=== PATIENT | male | born 1990 | race Caucasian/White ===

== ENCOUNTER 2018-06-06 20:04 | Emergency (ER) | payer BC, OTHER ==
[2018-06-06] MEDS ORDERED: Benzocaine 20% Topical Spray UD MUCMEM ONE (20:22)
[2018-06-06] MEDS ORDERED: Lidocaine 2% Viscous Solution 100 ML Bottle PO ONE (20:22)
[2018-06-06] MEDS ORDERED: Lidocaine 2% Viscous Solution 15 ML Cup ONE (20:53)
[2018-06-06] MEDS ORDERED: Ketorolac 60 MG/2 ML SDV IM ONE (21:42)
--- NOTE | 2018-06-06 21:42 | EDM.PDOC ---
ED HPI GENERAL MEDICAL PROBLEM - General Chief Complaint: ENT Problem Stated Complaint: EAR ACHE CAUSED BY TOOTH ACHE Time Seen by Provider: 06/06/18 21:27 Source of Information: Reports: Patient History Limitations: Reports: No Limitations - History of Present Illness INITIAL COMMENTS - FREE TEXT/NARRATIVE: HISTORY AND PHYSICAL: History of present illness: 27-year-old male presenting department with chief complaint of right tooth pain Patient states that he has had problems with his right tooth for the past few days. The last 2 days he's been having more pain. He has not been able to get to the dentist. He denies any fever, chills, nausea, vomiting, or other signs of systemic infection. On exam tooth #29 is chipped and there is mild swelling to the gum adjacent. Review of systems: As per history of present illness and below otherwise all systems reviewed and negative. Past medical history: As per history of present illness and as reviewed below otherwise noncontributory. Surgical history: As per history of present illness and as reviewed below otherwise noncontributory. Social history: No reported history of drug or alcohol abuse. Family history: As per history of present illness and as reviewed below otherwise noncontributory. Physical exam: HEENT: Atraumatic, normocephalic, pupils reactive, negative for conjunctival pallor or scleral icterus, mucous membranes moist, throat clear, neck supple, nontender, trachea midline. Lungs: Clear to auscultation, breath sounds equal bilaterally, chest nontender. Heart: S1S2, regular, negative for clicks, rubs, or JVD. Abdomen: Soft, nondistended, nontender. Negative for masses or hepatosplenomegaly. Negative for costovertebral tenderness. Pelvis: Stable nontender. Genitourinary: Deferred. Rectal: Deferred. Extremities: Atraumatic, negative for cords or calf pain. Neurovascular unremarkable. Neuro: Awake, alert, oriented. Cranial nerves II through XII unremarkable. Cerebellum unremarkable. Motor and sensory unremarkable throughout. Exam nonfocal. Diagnostics: [] Therapeutics: Augmentin Dental balls Tordol Impression: Dental abscess Plan: [] Definitive disposition and diagnosis as appropriate pending reevaluation and review of above. Jaw, R Pain Score (Numeric/FACES): 4 - Related Data Allergies Allergy/AdvReac Type Severity Reaction Status Date / Time No Known Allergies Allergy Verified 06/06/18 20:39 Home Meds: Home Meds . [No Known Home Meds] 06/06/18 [History] Past Medical History - Past Health History Medical/Surgical History: Denies Medical/Surgical History - Infectious Disease History Infectious Disease History: Reports: Chicken Pox - Past Surgical History Other Musculoskeletal Surgeries/Procedures:: finger surgery Social & Family History - Tobacco Use Smoking Status *Q: Former Smoker Used Tobacco, but Quit: Yes Month/Year Tobacco Last Used: 12/14 - Caffeine Use Caffeine Use: Reports: Soda - Recreational Drug Use Recreational Drug Use: No ED ROS GENERAL - Review of Systems Review Of Systems: ROS reveals no pertinent complaints other than HPI. ED EXAM, GENERAL - Physical Exam Exam: See Below Course - Vital Signs Last Recorded V/S: Last Vital Signs Temp 99.3 F 06/06/18 20:37 Pulse 81 06/06/18 20:37 Resp 12 06/06/18 20:37 BP 114/72 06/06/18 20:44 Pulse Ox 98 06/06/18 20:37 - Orders/Labs/Meds Orders: Active Orders 24 hr Category Date Time Status Ketorolac [Toradol] Med 06/06/18 21:42 Once 60 mg IM ONETIME ONE Meds: Medications Discontinued Medications Generic Name Dose Route Start Last Admin Trade Name Arnieq PRN Reason Stop Dose Admin Benzocaine 2 each 06/06/18 20:22 06/06/18 20:57 Hurricaine One 20% MUCMEM 06/06/18 20:23 2 each ONETIME ONE Administration Lidocaine HCl 20 ml 06/06/18 20:22 06/06/18 20:57 Xylocaine 2% Viscous PO 06/06/18 20:23 Not Given ONETIME ONE Lidocaine HCl Confirm 06/06/18 20:53 06/06/18 20:57 Xylocaine 2% Viscous Administered 06/06/18 20:54 15 ml Dose Administration 15 ml .ROUTE .STK-MED ONE Departure - Departure Time of Disposition: 21:42 Disposition: Home, Self-Care 01 Condition: Good Clinical Impression: Dental abscess - Discharge Information Referrals: PCP,None [Primary Care Provider] - Forms: ED Department Discharge Additional Instructions: My general discharge The following information is given to patients seen in the emergency department who are being discharged to home. This information is to outline your options for follow-up care. We provide all patients seen in our emergency department with a follow-up referral. The need for follow-up, as well as the timing and circumstances, are variable depending upon the specifics of your emergency department visit. If you don't have a primary care physician on staff, we will provide you with a referral. We always advise you to contact your personal physician following an emergency department visit to inform them of the circumstance of the visit and for follow-up with them and/or the need for any referrals to a consulting specialist. The emergency department will also refer you to a specialist when appropriate. This referral assures that you have the opportunity for follow-up care with a specialist. All of these measure are taken in an effort to provide you with optimal care, which includes your follow-up. Under all circumstances we always encourage you to contact your private physician who remains a resource for coordinating your care. When calling for follow-up care, please make the office aware that this follow-up is from your recent emergency room visit. If for any reason you are refused follow-up, please contact the [facility] Department at and asked to speak to the emergency department charge nurse. Take antibiotics as prescribed Follow-up with dentist - My Orders Last 24 Hours: My Active Orders 06/06/18 21:42 Ketorolac [Toradol] 60 mg IM ONETIME ONE - Assessment/Plan Last 24 Hours: My Active Orders 06/06/18 21:42 Ketorolac [Toradol] 60 mg IM ONETIME ONE
== END 2018-06-06 21:50 | disposition home or self-care (01) ==
LOC: MW.ED 20:04
DX: K04.7 Periapical abscess without sinus (principal); Z87.891 Personal history of nicotine dependence
CPT/HCPCS: 99282; A9270